=== PATIENT | female | born 1955 | race Caucasian/White ===

== ENCOUNTER 2021-10-16 05:46 | Observation (INO) ==
[~2021-10-16 05:46] MED LIST: Buffered Lidocaine 1% SYRIN 1 ml INTRADERM ONE; DiMENhydriNATE IV 50 mg/ml 1 ml VIAL IV PUSH ONE; HYDROcodone/ACETAMIN 5/325 mg TAB PO PRN; Lactated Ringers 1000 ml BAG 1,000 ML IV SCH; Metoclopramide 5 MG/ML VIAL (10 mg) IV PRN; Naloxone 0.4 mg VIAL 0.4 mg/ml 1 ml VIAL IV PRN; Ondansetron 4 mg VIAL 2 MG/ML 2 ml VIAL IV PRN
[2021-10-16] MEDS ORDERED: ceFAZolin 1 GM ADVAN 1 GM ADDV.VIAL IVPB ONE (06:53)
[2021-10-16] MEDS ORDERED: Lidocaine 2% PF 5 ML VIAL ONE (07:01)
[2021-10-16] MEDS ORDERED: Ondansetron 4 mg VIAL 2 MG/ML 2 ml VIAL ONE (07:01)
[2021-10-16] MEDS ORDERED: Propofol 0 MG/0 ML BTL ONE (07:01)
[2021-10-16] MEDS ORDERED: Dexamethasone IV 4 MG/ML VIAL 1 ml VIAL ONE (07:01)
[2021-10-16] MEDS ORDERED: Midazolam 2 mg/2 ml VIAL 1 mg/ml 2 ml VIAL (2 mg) ONE (07:02)
[2021-10-16] MEDS ORDERED: fentaNYL 100 mcg/2 ml 50 MCG/ML VIAL ONE ×3 (07:02→12:33)
[2021-10-16] MEDS ORDERED: DiMENhydriNATE IV 50 mg/ml 1 ml VIAL ONE (07:03)
[2021-10-16] MEDS ORDERED: Rocuronium 50 mg VIAL 10 mg/ml 5 ml VIAL (50 mg) ONE ×2 (07:18→08:22)
[2021-10-16] MEDS ORDERED: Propofol 10 MG/ML 20 ML BTL ONE (07:18)
[2021-10-16] MEDS ORDERED: fentaNYL 250 mcg/5 ml 50 MCG/ML 5 ml VIAL (250 MCG) ONE ×3 (07:46→12:02)
[2021-10-16] MEDS ORDERED: Magnesium Hydroxide LIQ 30 ML UDC PO PRN (08:27)
[2021-10-16] MEDS ORDERED: Ondansetron 4 mg VIAL 2 MG/ML 2 ml VIAL IV PRN (08:27)
[2021-10-16] MEDS ORDERED: diPHENhydraMINE 25 mg TAB PO PRN (08:27)
[2021-10-16] MEDS ORDERED: diPHENhydraMINE IV 50 MG/ML 1 ml VIAL (BENADRYL) IV PRN (08:27)
[2021-10-16] MEDS ORDERED: Ondansetron ODT 4 mg TAB 4 MG TAB PO PRN (08:27)
[2021-10-16] MEDS ORDERED: Lactulose 30 ml UDC PO PRN (08:27)
[2021-10-16] MEDS ORDERED: Magnesium Hydroxide LIQ 30 ML UDC PO SCH (09:00)
[2021-10-16] MEDS ORDERED: Lactated Ringers 1000 ml BAG 1,000 ML IV SCH (09:00)
[2021-10-16] MEDS ORDERED: Vitamin THERAPEUTIC TAB PO SCH (09:00)
[2021-10-16] MEDS ORDERED: ROPIVACAINE 5 MG/ML 30 ML BTL (0.5%) ONE (09:59)
[2021-10-16] MEDS: fentaNYL 100 mcg/2 ml 50 MCG/ML VIAL IV PRN ×2 (10:31→10:37)
[2021-10-16] MEDS ORDERED: HYDROcodone/ACETAMIN 5/325 mg TAB ONE (10:38)
[2021-10-16] MEDS ORDERED: Glycopyrrolate IV 0.2 MG/ML 1 ML VIAL ONE ×2 (12:03→12:16)
[2021-10-16] MEDS ORDERED: ceFAZolin 1 GM ADVAN 1 GM in NS 0.9% 50 ML 50 ML IVPB SCH (16:00)
[2021-10-16 17:21] VITALS: BP 127/53
== END 2021-10-16 19:20 | disposition home or self-care (01) ==
LOC: SSU 05:46 → OR 05:46
PROVIDERS: ADMIT Orthopaedic Surgery Adult Reconstructive Orthopaedic Surgery; ATTEND Orthopaedic Surgery Adult Reconstructive Orthopaedic Surgery